=== PATIENT | female | born 1940 | race Two or more races ===

== ENCOUNTER 2023-12-02 12:11 | Inpatient (IN) | payer MEDICARE, OTHER ==
[~2023-12-02] VITALS: Ht 162.6 cm; Wt 54.0 kg
[2023-12-02] VITALS (14 sets, daily range): BP systolic 122–159; BP diastolic 35–107; TEMP 98.8; O2SAT 92–100
[2023-12-02 12:48] LABS: BASOPHILS % (AUTO) 0.8 % (0.0-2.0); EOSINOPHILS # (AUTO) 0.3 K/uL (0.0-0.7); EOSINOPHILS % (AUTO) 5.3 % (0.0-6.0); HEMATOCRIT 41 % (33-45); HEMOGLOBIN 13.3 g/dL (11.5-14.8); LYMPHOCYTES # (AUTO) 2.6 K/uL (0.8-4.8); LYMPHOCYTES % (AUTO) 43.8 % (20.0-44.0); MEAN CORPUSCULAR HEMOGLOBIN 29 PG (26.0-33.0); MEAN CORPUSCULAR HGB CONC 32 g/dl (31.0-36.0); MEAN CORPUSCULAR VOLUME 89 fL (82-100); MONOCYTES # (AUTO) 0.6 K/uL (0.1-1.30); MONOCYTES % (AUTO) 10.7 % (2.0-12.0); NEUTROPHILS # (AUTO) 2.4 K/uL (1.8-8.9); NEUTROPHILS % (AUTO) 39.4 % (43.0-81.0); PLATELET COUNT (AUTO) 198 K/uL (150-450); RED BLOOD CELL COUNT(AUTO) 4.66 MIL/uL (4.0-5.2); RED CELL DISTRIBUTION WIDTH 14.8 % (11.5-15.0)
[2023-12-02 13:03] LABS: CALCIUM, SERUM 9.6 mg/dL (8.5-10.1); CARBON DIOXIDE 27 mmol/L (21-32); CHLORIDE 106 mmol/L (98-107); CREATININE 1.8 mg/dL (0.6-1.3); GLUCOSE 86 mg/dL (74-106); POTASSIUM 5.1 mmol/L (3.5-5.1); SODIUM SERUM 141 mmol/L (136-145); UREA NITROGEN, BLOOD 59 mg/dL (7-18)
[2023-12-02] MEDS ORDERED: MAGN400O6 PO (13:12)
[2023-12-02] MEDS ORDERED: DOCU100T2 PO (13:12)
[2023-12-02] MEDS ORDERED: ACET-868 PO (13:12)
[2023-12-02] MEDS ORDERED: ATOR20TA PO (13:12)
[2023-12-02] MEDS ORDERED: FURO-144 PO (13:12)
[2023-12-02] MEDS ORDERED: WARF-68 PO (13:12)
[2023-12-02] MEDS ORDERED: SACU1TAB7 PO (13:12)
[2023-12-02] MEDS ORDERED: AMLO5TAB4 PO (13:12)
[2023-12-02] MEDS ORDERED: POTA-88 PO (13:12)
[2023-12-02] MEDS ORDERED: LEVE500T20 PO (13:12)
[2023-12-02] MEDS ORDERED: CHOL100062 PO (13:12)
[2023-12-02] MEDS ORDERED: ACET-2030 PO (13:12)
[2023-12-02] MEDS ORDERED: ASPI-1169 PO (13:12)
[2023-12-02] MEDS ORDERED: FAMO-130 PO (13:12)
[2023-12-02] MEDS ORDERED: CARV25TA PO (13:12)
[2023-12-02 13:16] LABS: NT-PRO BNP 2482 pg/mL (0-125)
[2023-12-02 15:09] LABS: INR 2.63 (0.91-1.10); PARTIAL THROMBOPLASTIN TIME 44.3 SEC (24.3-34.3); PROTHROMBIN TIME 26.2 SECS (9.2-11.1)
[2023-12-02] MEDS ORDERED: Z GUARD REMEDY 4 OZ OINT TP PRN (15:30)
[2023-12-02] MEDS ORDERED: PHYTONADIONE 5 MG TABLET PO ONE (15:30)
[2023-12-02] MEDS ORDERED: PHYTONADIONE INJ 5 MG in IV D5W 50 ML SQ ONE (15:30)
[2023-12-02] MEDS ORDERED: ONDANSETRON HCL/PF 4 MG/2 ML VIAL IVP PRN (15:30)
[2023-12-02] MEDS ORDERED: ACETAMINOPHEN 325 MG TABLET PO PRN ×2 (15:30)
[2023-12-02] MEDS: LEVETIRACETAM (250 MG) 250 MG TABLET PO SCH (16:57)
[2023-12-02] MEDS: SACUBITRIL/VALSARTAN 49/51MG TABLET PO SCH (17:00)
[2023-12-02 17:08] LABS: INR 2.72 (0.91-1.10)
[2023-12-02] MEDS: IV NS 0.9% 1,000 ML IV PRN (17:57)
[2023-12-02] MEDS: PHYTONADIONE INJ 5 MG in IV D5W 50 ML SQ ONE (18:04)
[2023-12-02] MEDS: ATORVASTATIN 10 MG TABLET PO SCH (21:43)
[2023-12-03] VITALS (43 sets, daily range): BP systolic 94–159; BP diastolic 32–99; TEMP 96.5–98; O2SAT 92–100
[2023-12-03 04:13] LABS: BASOPHILS # (AUTO) 0.1 K/uL (0.0-0.2); BASOPHILS % (AUTO) 1.1 % (0.0-2.0); EOSINOPHILS # (AUTO) 0.3 K/uL (0.0-0.7); EOSINOPHILS % (AUTO) 6.7 % (0.0-6.0); HEMATOCRIT 41 % (33-45); HEMOGLOBIN 13.4 g/dL (11.5-14.8); LYMPHOCYTES # (AUTO) 1.8 K/uL (0.8-4.8); LYMPHOCYTES % (AUTO) 34.6 % (20.0-44.0); MEAN CORPUSCULAR HEMOGLOBIN 29 PG (26.0-33.0); MEAN CORPUSCULAR HGB CONC 33 g/dl (31.0-36.0); MEAN CORPUSCULAR VOLUME 90 fL (82-100); MONOCYTES # (AUTO) 0.6 K/uL (0.1-1.30); MONOCYTES % (AUTO) 11.2 % (2.0-12.0); NEUTROPHILS # (AUTO) 2.4 K/uL (1.8-8.9); NEUTROPHILS % (AUTO) 46.4 % (43.0-81.0); PLATELET COUNT (AUTO) 177 K/uL (150-450); RED BLOOD CELL COUNT(AUTO) 4.57 MIL/uL (4.0-5.2); RED CELL DISTRIBUTION WIDTH 14.6 % (11.5-15.0); WHITE BLOOD COUNT (AUTO) 5.2 K/uL (4.3-11.0)
[2023-12-03 04:20] LABS: INR 1.51 (0.91-1.10); PROTHROMBIN TIME 15.6 SECS (9.2-11.1)
[2023-12-03 04:27] LABS: CALCIUM, SERUM 8.9 mg/dL (8.5-10.1); CARBON DIOXIDE 24 mmol/L (21-32); CHLORIDE 112 mmol/L (98-107); CREATININE 1.4 mg/dL (0.6-1.3); GLUCOSE 92 mg/dL (74-106); MAGNESIUM 1.9 mg/dL (1.8-2.4); PHOSPHORUS 3.7 mg/dL (2.5-4.9); POTASSIUM 4.4 mmol/L (3.5-5.1); SODIUM SERUM 146 mmol/L (136-145); UREA NITROGEN, BLOOD 42 mg/dL (7-18)
[2023-12-03] MEDS ORDERED: PANTOPRAZOLE 40 MG TABLET.DR PO SCH (07:30)
[2023-12-03] MEDS: AMLODIPINE BESYLATE 5 MG TABLET PO SCH (08:13)
[2023-12-03] MEDS: SACUBITRIL/VALSARTAN 49/51MG TABLET PO SCH (08:13)
[2023-12-03] MEDS: CHOLECALCIFEROL 1,000 UNIT TABLET (VIT D3) PO SCH (08:27)
[2023-12-03] MEDS: DOCUSATE SODIUM 100 MG CAPSULE PO SCH (08:27)
[2023-12-03] MEDS: PANTOPRAZOLE 40 MG VIAL IV SCH (08:40)
[2023-12-03] MEDS ORDERED: FUROSEMIDE 40 MG TABLET PO SCH (09:00)
[2023-12-03] MEDS ORDERED: LIDOCAINE HCL/MPF 1% 30 ML VIAL IJ ONE (09:58)
[2023-12-03] MEDS ORDERED: IOHEXOL 0 ML IV ONE (09:58)
[2023-12-03 10:35] LABS: APPEARANCE,URINE CLEAR (CLEAR); BILIRUBIN,URINE NEGATIVE (NEGATIVE); BLOOD, URINE NEGATIVE Ery/uL (NEGATIVE); COLOR,URINE YELLOW (YELLOW); KETONES,URINE NEGATIVE (NEGATIVE); LEUKOCYTE ESTERASE ,URINE 1+ (NEGATIVE); NITRITE, URINE POSITIVE (NEGATIVE); PROTEIN,URINE NEGATIVE (NEGATIVE); UGLUCOSE NEGATIVE (NEGATIVE); UROBILINOGEN,URINE 0.2 EU/dL (0.2)
[2023-12-03 10:37] LABS: CREATININE, URINE 74.8 MG/DL (30.0-125.0); URINE TOTAL PROTEIN 28.7 mg/dL (0-11.9)
[2023-12-03] MEDS ORDERED: ALBUMIN 5% 500 ML IV ONE (10:55)
[2023-12-03] MEDS ORDERED: MIDAZOLAM HCL 2 MG/2ML VIAL ONE (10:59)
[2023-12-03 11:07] LABS: ADD URINE CULTURE YES; BACTERIA,URINE Many /HPF (None Seen)
[2023-12-03 11:08] LABS: RBC,URINE 0-2 /HPF (0-2); SQUAMOUS EPITHELIAL CELL,UR None Seen /HPF (None Seen)
[2023-12-03 12:19] LABS: EOSINOPHIL,URINE None Seen
[2023-12-03] MEDS ORDERED: NEPRO VAN 237 ML CAN PO PRN (18:30)
[2023-12-04] VITALS (33 sets, daily range): BP systolic 114–192; BP diastolic 47–126; TEMP 98.4–98.8; O2SAT 97–100
[2023-12-04] MEDS: hydrALAZINE HCL IV 20 MG VIAL IV PRN (05:07)
[2023-12-04] MEDS: NITROGLYCERIN 30 GM TUBE TP SCH (09:54)
[2023-12-04] MEDS: hydrALAZINE HCL 50 MG TABLET PO SCH (09:54)
[2023-12-04] MEDS: APIXABAN 5 MG TABLET PO SCH (09:55)
[2023-12-04 10:03] LABS: BASOPHILS # (AUTO) 0.1 K/uL (0.0-0.2); BASOPHILS % (AUTO) 0.8 % (0.0-2.0); EOSINOPHILS # (AUTO) 0.4 K/uL (0.0-0.7); EOSINOPHILS % (AUTO) 4.9 % (0.0-6.0); HEMATOCRIT 43 % (33-45); LYMPHOCYTES # (AUTO) 2.2 K/uL (0.8-4.8); LYMPHOCYTES % (AUTO) 28.6 % (20.0-44.0); MEAN CORPUSCULAR HEMOGLOBIN 29 PG (26.0-33.0); MEAN CORPUSCULAR HGB CONC 33 g/dl (31.0-36.0); MEAN CORPUSCULAR VOLUME 90 fL (82-100); MONOCYTES # (AUTO) 0.8 K/uL (0.1-1.30); MONOCYTES % (AUTO) 10.3 % (2.0-12.0); NEUTROPHILS # (AUTO) 4.3 K/uL (1.8-8.9); NEUTROPHILS % (AUTO) 55.4 % (43.0-81.0); PLATELET COUNT (AUTO) 161 K/uL (150-450); RED BLOOD CELL COUNT(AUTO) 4.77 MIL/uL (4.0-5.2); RED CELL DISTRIBUTION WIDTH 14.8 % (11.5-15.0); WHITE BLOOD COUNT (AUTO) 7.7 K/uL (4.3-11.0)
[2023-12-04 11:33] LABS: CALCIUM, SERUM 9.6 mg/dL (8.5-10.1); CARBON DIOXIDE 14 mmol/L (21-32); CHLORIDE 109 mmol/L (98-107); CREATININE 0.9 mg/dL (0.6-1.3); GLUCOSE 149 mg/dL (74-106); POTASSIUM 4.8 mmol/L (3.5-5.1); SODIUM SERUM 141 mmol/L (136-145); UREA NITROGEN, BLOOD 21 mg/dL (7-18)
[2023-12-04] MEDS: MUPIROCIN OINT 2% 22 GM TUBE NS SCH (21:49)
[2023-12-05] VITALS: BP 147/51; TEMP 98.8; O2SAT 100
[2023-12-05 08:00] VITALS: BP 163/78; TEMP 98.5; O2SAT 100
[2023-12-05 08:12] VITALS: BP 163/78
[2023-12-05] MEDS: PANTOPRAZOLE 40 MG VIAL IV SCH (08:12)
[2023-12-05] MEDS ORDERED: HYDR-4077 PO (08:44)
[2023-12-05] MEDS ORDERED: NITR100C6 PO (08:44)
[2023-12-05] MEDS ORDERED: APIX5TAB PO (08:44)
[2023-12-05] MEDS: NITROFURANTOIN/MONOHYDRATE MACROCRYSTALS 100 MG CAPSULE PO SCH (08:59)
[2023-12-05] MEDS ORDERED: PANTOPRAZOLE 40 MG TABLET.DR PO SCH (09:00)
== END 2023-12-05 11:28 | DRG 258 ==
LOC: ER 12:24 → ICU 15:06 → MEDSG1 12-04 16:28
PROVIDERS: ADMIT Nurse Practitioner Family; ATTEND Nurse Practitioner Family
PROC: 0JPT0PZ Removal of Cardiac Rhythm Related Device from Trunk Subcutaneous Tissue and Fascia, Open Approach (ICD-10-PCS; principal; 2023-12-03)
PROC: 0JH606Z Insertion of Pacemaker, Dual Chamber into Chest Subcutaneous Tissue and Fascia, Open Approach (ICD-10-PCS; 2023-12-03)
DX: T82.111A Breakdown (mechanical) of cardiac pulse generator (battery), initial encounter (principal); G93.41 Metabolic encephalopathy; I13.0 Hypertensive heart and chronic kidney disease with heart failure and stage 1 through stage 4 chronic kidney disease, or unspecified chronic kidney disease; I44.2 Atrioventricular block, complete; I50.22 Chronic systolic (congestive) heart failure; E87.0 Hyperosmolality and hypernatremia; N39.0 Urinary tract infection, site not specified; I48.92 Unspecified atrial flutter; N17.9 Acute kidney failure, unspecified; Y71.2 Prosthetic and other implants, materials and accessory cardiovascular devices associated with adverse incidents; D63.1 Anemia in chronic kidney disease; E78.5 Hyperlipidemia, unspecified; G89.4 Chronic pain syndrome; I25.10 Atherosclerotic heart disease of native coronary artery without angina pectoris; I25.2 Old myocardial infarction; Z79.82 Long term (current) use of aspirin; Z86.73 Personal history of transient ischemic attack (TIA), and cerebral infarction without residual deficits; Z95.1 Presence of aortocoronary bypass graft; N18.9 Chronic kidney disease, unspecified; I48.91 Unspecified atrial fibrillation; G40.909 Epilepsy, unspecified, not intractable, without status epilepticus; Y84.8 Other medical procedures as the cause of abnormal reaction of the patient, or of later complication, without mention of misadventure at the time of the procedure; Y92.129 Unspecified place in nursing home as the place of occurrence of the external cause; Z79.899 Other long term (current) drug therapy
CPT/HCPCS: 36415; 71045-TC; 80048-TC; 81001; 82570-TC; 82962-TC; 83735-TC; 83880; 84100-TC; 84300-TC; 84484-TC; 85025-TC; 85610-TC; 85730-TC; 87081-TC; 87086-TC; 93307-TC; 94799-TC; A4223; A6403; C1785; G0378; J0360; J0690; J1644; J2250; J2470; J3430; J3490; J7030; J7060; P9045; Q9967

== ENCOUNTER 2024-03-16 13:42 | Inpatient (IN) | payer MEDICARE, OTHER ==
[~2024-03-16] VITALS: Ht 162.6 cm; Wt 55.3 kg
[~2024-03-16 13:42] MED LIST: ACET-868 PO; AMLO5TAB4 PO; APIX5TAB PO; ASPI-1169 PO; ATOR20TA PO; CARV25TA PO; CHOL100062 PO; DOCU100T2 PO; FAMO-130 PO; FURO-144 PO; HYDR-4077 PO; IVER3TAB2 PO; LEVE500T20 PO; MAGN400O6 PO; MULT-213 PO; NITR100C6 PO; POTA-88 PO; SACU1TAB7 PO
[2024-03-16] MEDS ORDERED: NALOXONE PREFILLED SYRINGE 2 MG/2 ML SYRINGE ONE (13:46)
[2024-03-16] MEDS: NALOXONE HCL 0.4 MG/ML AMPUL IV ONE (13:48)
[2024-03-16 14:17] LABS: BASOPHILS # (AUTO) 0.1 K/uL (0.0-0.2); BASOPHILS % (AUTO) 1.5 % (0.0-2.0); EOSINOPHILS # (AUTO) 0.3 K/uL (0.0-0.7); EOSINOPHILS % (AUTO) 5.7 % (0.0-6.0); HEMATOCRIT 35 % (33-45); HEMOGLOBIN 11.7 g/dL (11.5-14.8); LYMPHOCYTES # (AUTO) 2.3 K/uL (0.8-4.8); LYMPHOCYTES % (AUTO) 43.6 % (20.0-44.0); MEAN CORPUSCULAR HEMOGLOBIN 30 PG (26.0-33.0); MEAN CORPUSCULAR HGB CONC 33 g/dl (31.0-36.0); MEAN CORPUSCULAR VOLUME 90 fL (82-100); MONOCYTES # (AUTO) 0.8 K/uL (0.1-1.30); MONOCYTES % (AUTO) 14.1 % (2.0-12.0); NEUTROPHILS # (AUTO) 1.9 K/uL (1.8-8.9); NEUTROPHILS % (AUTO) 35.1 % (43.0-81.0); PLATELET COUNT (AUTO) 178 K/uL (150-450); RED BLOOD CELL COUNT(AUTO) 3.88 MIL/uL (4.0-5.2); RED CELL DISTRIBUTION WIDTH 14.6 % (11.5-15.0); WHITE BLOOD COUNT (AUTO) 5.4 K/uL (4.3-11.0)
[2024-03-16 14:35] LABS: INR 1.03 (0.91-1.10); PARTIAL THROMBOPLASTIN TIME 27.6 SEC (24.3-34.3); PROTHROMBIN TIME 10.9 SECS (9.2-11.1)
[2024-03-16 14:36] LABS: CALCIUM, SERUM 9.8 mg/dL (8.5-10.1); CARBON DIOXIDE 26 mmol/L (21-32); CHLORIDE 110 mmol/L (98-107); CREATININE 1.3 mg/dL (0.6-1.3); GLUCOSE 95 mg/dL (74-106); POTASSIUM 4.7 mmol/L (3.5-5.1); SODIUM SERUM 142 mmol/L (136-145); UREA NITROGEN, BLOOD 36 mg/dL (7-18)
[2024-03-16 14:37] LABS: SERUM AMMONIA 5 umol/L (11-32)
[2024-03-16] MEDS ORDERED: ACET-73 PO (14:39)
[2024-03-16 14:47] LABS: ABG BASE EXCESS -1.7 mmol/L (-2.0-3.0); ABG OXYGEN SATURATION 96.2 % (94.0-98.0); ABG PCO2 40.3 mmHg (32.0-45.0); ABG PO2 89.1 mmHg (83.0-108.0); ABG TOTAL HEMOGLOBIN 12.9 G/dL (12.0-16.0); COHb 0.3 % (0.5-1.5); MetHb 0.3 % (0.0-1.5); O2Hb 95.6 % (94.0-97.0); SITE, ABG RIGHT BRACHIAL
[2024-03-16 14:51] LABS: ALANINE AMINOTRANSFERASE 24 U/L (12-78); ALBUMIN 3.6 g/dL (3.4-5.0); ALCOHOL, BLOOD < 3 mg/dL (0-10); ALKALINE PHOSPHATASE 55 U/L (46-116); ASPARTATE AMINOTRANSFERASE 17 U/L (15-37); BILIRUBIN,DIRECT 0.2 mg/dL (0.0-0.2); BILIRUBIN,TOTAL 0.8 mg/dL (0.2-1.0); TOTAL PROTEIN, SERUM 6.8 g/dL (6.4-8.2)
[2024-03-16 14:52] LABS: ACETAMINOPHEN <10 ug/ml (10-30); SALICYLATE < 0.2 mg/dL (2.8-20.0)
[2024-03-16 15:20] LABS: APPEARANCE,URINE CLEAR (CLEAR); BILIRUBIN,URINE NEGATIVE (NEGATIVE); BLOOD, URINE NEGATIVE Ery/uL (NEGATIVE); COLOR,URINE YELLOW (YELLOW); KETONES,URINE NEGATIVE (NEGATIVE); LEUKOCYTE ESTERASE ,URINE 2+ (NEGATIVE); NITRITE, URINE POSITIVE (NEGATIVE); PROTEIN,URINE NEGATIVE (NEGATIVE); UGLUCOSE NEGATIVE (NEGATIVE); UROBILINOGEN,URINE 0.2 EU/dL (0.2)
[2024-03-16 15:28] LABS: PREGNANCY TEST URINE QUAL NEGATIVE (NEGATIVE)
[2024-03-16 15:30] LABS: RBC,URINE 0-2 /HPF (0-2)
[2024-03-16 15:31] LABS: ADD URINE CULTURE YES; BACTERIA,URINE Many /HPF (None Seen); SQUAMOUS EPITHELIAL CELL,UR Rare /HPF (None Seen); WBC,URINE 81-100 /HPF (0-3)
[2024-03-16 15:38] LABS: AMPHETAMINE, URINE NEGATIVE (NEGATIVE); BARBITURATE, URINE NEGATIVE (NEGATIVE); BENZODIAZEPINE, URINE NEGATIVE (NEGATIVE); CANNABINOID, URINE NEGATIVE (NEGATIVE); COCCAINE, URINE NEGATIVE (NEGATIVE); OPIATE, URINE NEGATIVE (NEGATIVE); PHENCYCLIDINE SCREEN,URINE NEGATIVE (NEGATIVE)
[2024-03-16] MEDS: CEFTRIAXONE 1GM BAG (ER ONLY) 1 GM/50 ML PIGGYBACK IV ONE (16:10)
[2024-03-16] MEDS ORDERED: MAGNESIUM HYDROXIDE 30 ML UDC PO PRN (18:00)
[2024-03-16] MEDS ORDERED: Z GUARD REMEDY 4 OZ OINT TP PRN (18:00)
[2024-03-16] MEDS ORDERED: MAG HYDROX/AL HYDROX/SIMETH 30 ML UDC PO PRN (18:00)
[2024-03-16] MEDS ORDERED: HYDROCODONE/APAP 5/325MG TABLET PO PRN (18:00)
[2024-03-16] MEDS ORDERED: ONDANSETRON HCL/PF 4 MG/2 ML VIAL IVP PRN (18:00)
[2024-03-16] MEDS ORDERED: ZOLPIDEM TARTRATE 5 MG TABLET PO PRN (18:00)
[2024-03-16] MEDS ORDERED: ACETAMINOPHEN 325 MG TABLET PO PRN (18:00)
[2024-03-16 20:00] VITALS: BP 105/60; TEMP 97.1; O2SAT 99
[2024-03-16] MEDS: ENOXAPARIN SODIUM 30 MG/0.3 ML DISP.SYRIN SQ SCH (21:23)
[2024-03-16] MEDS: IV 1/2NS 1000 ML 1,000 ML IV PRN (21:43)
[2024-03-17] VITALS: BP 144/74; TEMP 96.5; O2SAT 99
[2024-03-17 04:00] VITALS: BP 141/75; TEMP 97.3; O2SAT 99
[2024-03-17 07:29] LABS: BASOPHILS # (AUTO) 0.1 K/uL (0.0-0.2); EOSINOPHILS # (AUTO) 0.3 K/uL (0.0-0.7); HEMATOCRIT 39 % (33-45); HEMOGLOBIN 12.4 g/dL (11.5-14.8); LYMPHOCYTES # (AUTO) 1.6 K/uL (0.8-4.8); LYMPHOCYTES % (AUTO) 32.8 % (20.0-44.0); MEAN CORPUSCULAR HEMOGLOBIN 29 PG (26.0-33.0); MEAN CORPUSCULAR HGB CONC 32 g/dl (31.0-36.0); MEAN CORPUSCULAR VOLUME 92 fL (82-100); MONOCYTES # (AUTO) 0.6 K/uL (0.1-1.30); MONOCYTES % (AUTO) 12.5 % (2.0-12.0); NEUTROPHILS # (AUTO) 2.3 K/uL (1.8-8.9); NEUTROPHILS % (AUTO) 47.7 % (43.0-81.0); PLATELET COUNT (AUTO) 181 K/uL (150-450); RED BLOOD CELL COUNT(AUTO) 4.21 MIL/uL (4.0-5.2); RED CELL DISTRIBUTION WIDTH 14.6 % (11.5-15.0); WHITE BLOOD COUNT (AUTO) 4.9 K/uL (4.3-11.0)
[2024-03-17 07:40] LABS: CALCIUM, SERUM 9.5 mg/dL (8.5-10.1); CARBON DIOXIDE 29 mmol/L (21-32); CHLORIDE 111 mmol/L (98-107); CREATININE 1.1 mg/dL (0.6-1.3); GLUCOSE 81 mg/dL (74-106); MAGNESIUM 2.3 mg/dL (1.8-2.4); POTASSIUM 4.5 mmol/L (3.5-5.1); SODIUM SERUM 145 mmol/L (136-145); UREA NITROGEN, BLOOD 33 mg/dL (7-18)
[2024-03-17] MEDS: PANTOPRAZOLE 40 MG TABLET.DR PO SCH (07:46)
[2024-03-17 08:00] VITALS: BP 155/83; TEMP 97.7; O2SAT 99
[2024-03-17 12:00] VITALS: BP 124/57; TEMP 98.1; O2SAT 100
[2024-03-17] MEDS: CEFTRIAXONE 1 G in IV D5W 50 ML IV SCH (15:08)
[2024-03-17 16:00] VITALS: BP 156/92; TEMP 98.6; O2SAT 100
[2024-03-17 20:00] VITALS: BP 175/95; TEMP 98.6; O2SAT 100
[2024-03-17] MEDS: hydrALAZINE HCL IV 20 MG VIAL IV PRN (21:01)
[2024-03-18] VITALS: BP 145/84; TEMP 98; O2SAT 98
[2024-03-18 04:00] VITALS: BP 173/81; TEMP 98.3; O2SAT 98
[2024-03-18 08:50] VITALS: BP 168/65; TEMP 98.6; O2SAT 99
[2024-03-18 12:10] VITALS: BP 150/52
[2024-03-18 16:00] VITALS: BP 153/81; TEMP 98.8; O2SAT 98
[2024-03-18 20:00] VITALS: BP 135/59; TEMP 98.3; O2SAT 100
[2024-03-19 04:00] VITALS: BP 164/55; TEMP 97.9; O2SAT 99
[2024-03-19 08:00] VITALS: BP 183/75; TEMP 97.7; O2SAT 98
[2024-03-19] MEDS: AMLODIPINE BESYLATE 5 MG TABLET PO SCH (09:19)
[2024-03-19 16:00] VITALS: BP 180/70; TEMP 98; O2SAT 98
[2024-03-19 16:55] VITALS: BP 194/66
[2024-03-19] MEDS: CLONIDINE HCL 0.1 MG TABLET PO ONE (16:55)
== END 2024-03-19 20:25 | DRG 689 ==
LOC: ER 13:57 → TELE1 17:12 → MEDSG1 03-18 09:46
DX: N39.0 Urinary tract infection, site not specified (principal); G93.41 Metabolic encephalopathy; I50.32 Chronic diastolic (congestive) heart failure; I13.0 Hypertensive heart and chronic kidney disease with heart failure and stage 1 through stage 4 chronic kidney disease, or unspecified chronic kidney disease; N17.9 Acute kidney failure, unspecified; N18.9 Chronic kidney disease, unspecified; I25.10 Atherosclerotic heart disease of native coronary artery without angina pectoris; E78.5 Hyperlipidemia, unspecified; G40.909 Epilepsy, unspecified, not intractable, without status epilepticus; G89.4 Chronic pain syndrome; G93.89 Other specified disorders of brain; I25.2 Old myocardial infarction; M89.8X9 Other specified disorders of bone, unspecified site; Z95.0 Presence of cardiac pacemaker; Z95.1 Presence of aortocoronary bypass graft; Z79.01 Long term (current) use of anticoagulants; I70.0 Atherosclerosis of aorta; B96.1 Klebsiella pneumoniae [K. pneumoniae] as the cause of diseases classified elsewhere; Z79.82 Long term (current) use of aspirin; I69.320 Aphasia following cerebral infarction; E86.9 Volume depletion, unspecified; Z20.822 Contact with and (suspected) exposure to COVID-19
CPT/HCPCS: 36415; 70450-TC; 71045-TC; 80048-TC; 80076-TC; 81001; 82140-TC; 82962-TC; 83605-TC; 83735-TC; 84100-TC; 84443-TC; 84484-TC; 84703-TC; 85025-TC; 85730-TC; 87040-TC; 87086-TC; 97110-TC; 97116-TC; 97530-TC; A4223; G0378; G0480; J0360; J0696; J1650; J2310; J3490; J7060

== ENCOUNTER 2024-12-28 00:09 | Inpatient (IN) | payer MEDICARE, OTHER ==
[~2024-12-28] VITALS: Ht 162.6 cm; Wt 60.3 kg
[~2024-12-28 00:09] MED LIST changes: +ACET-73 PO; -NITR100C6 PO
[2024-12-28 00:45] LABS: PLATELET COUNT (AUTO) 312 K/uL (150-450); RED BLOOD CELL COUNT(AUTO) 3.36 MIL/uL (4.0-5.2); RED CELL DISTRIBUTION WIDTH 14.2 % (11.5-15.0); WHITE BLOOD COUNT (AUTO) 8.3 K/uL (4.3-11.0)
[2024-12-28 00:57] LABS: INR 1.03 (0.91-1.10)
[2024-12-28 00:59] LABS: CALCIUM, SERUM 9.3 mg/dL (8.5-10.1); CREATININE 1.5 mg/dL (0.6-1.3); SODIUM SERUM 141 mmol/L (136-145); UREA NITROGEN, BLOOD 26 mg/dL (7-18)
[2024-12-28 01:14] LABS: ASPARTATE AMINOTRANSFERASE 12 U/L (15-37); NT-PRO BNP 4114 pg/mL (0-125); TOTAL PROTEIN, SERUM 6.8 g/dL (6.4-8.2)
[2024-12-28] MEDS ORDERED: ACETAMINOPHEN 650 MG/SUPP.RECT RC PRN (02:00)
[2024-12-28] MEDS ORDERED: ONDANSETRON HCL/PF 4 MG/2 ML VIAL IVP PRN (02:00)
[2024-12-28] MEDS: FUROSEMIDE 40 MG/4 ML VIAL IV ONE (02:00)
[2024-12-28] MEDS: HEPARIN SODIUM, PORCINE 5000 UNITS/1 ML VIAL SQ SCH (02:00)
[2024-12-28] MEDS ORDERED: HEPARIN SODIUM, PORCINE 5000 UNITS/1 ML VIAL ONE (03:31)
[2024-12-28] MEDS ORDERED: FUROSEMIDE 40 MG/4 ML VIAL ONE (03:31)
[2024-12-28] MEDS ORDERED: ENOXAPARIN SODIUM 60 MG/0.6 ML DISP.SYRIN SQ SCH ×2 (05:00→06:43)
[2024-12-28 05:30] LABS: PHOSPHORUS 3.5 mg/dL (2.5-4.9)
[2024-12-28] MEDS ORDERED: ENOXAPARIN SODIUM 60 MG/0.6 ML DISP.SYRIN SQ ONE (05:52)
[2024-12-28] MEDS ORDERED: CRAN425C6 PO (07:39)
[2024-12-28] MEDS ORDERED: HYDR-3972 PO (07:39)
[2024-12-28] MEDS ORDERED: PANT40TA49 PO (07:39)
[2024-12-28] MEDS ORDERED: APIX5TAB PO (07:39)
[2024-12-28 08:00] VITALS: BP 163/49; TEMP 98.2; O2SAT 97
[2024-12-28] MEDS: APIXABAN 5 MG TABLET PO SCH (09:00)
[2024-12-28] MEDS: PANTOPRAZOLE 40 MG TABLET.DR PO SCH (09:00)
[2024-12-28] MEDS ORDERED: PANTOPRAZOLE 40 MG VIAL IV SCH (09:00)
[2024-12-28] MEDS: ENOXAPARIN SODIUM 60 MG/0.6 ML DISP.SYRIN SQ SCH (09:00)
[2024-12-28] MEDS: AMLODIPINE BESYLATE 5 MG TABLET PO SCH (09:00)
[2024-12-28] MEDS: LEVETIRACETAM (500MG) 500 MG in IV NS 0.9% 100 ML IV SCH (09:18)
[2024-12-28 11:46] LABS: IRON, SERUM 24.0 ug/dl (50-175)
[2024-12-28 11:59] LABS: LDL 68.0 mg/dL (0-99)
[2024-12-28 12:00] VITALS: BP 149/54; TEMP 98; O2SAT 98
[2024-12-28 14:47] LABS: CREATININE, URINE 96.1 MG/DL (30.0-125.0); URINE SODIUM, RANDOM 67.0 mmol/l (40-220); URINE TOTAL PROTEIN 39.8 mg/dL (0-11.9)
[2024-12-28 15:14] LABS: APPEARANCE,URINE SLIGHTLY CLOUDY (CLEAR); BLOOD, URINE NEGATIVE Ery/uL (NEGATIVE); LEUKOCYTE ESTERASE ,URINE 1+ (NEGATIVE); NITRITE, URINE POSITIVE (NEGATIVE); UGLUCOSE NEGATIVE (NEGATIVE)
[2024-12-28 15:43] LABS: ADD URINE CULTURE YES; SQUAMOUS EPITHELIAL CELL,UR 0-2 /HPF (None Seen)
[2024-12-28 15:47] VITALS: BP 141/98; TEMP 98.2; O2SAT 99
[2024-12-28] MEDS: CARVEDILOL 12.5 MG TABLET PO SCH (16:21)
[2024-12-28 17:22] LABS: EOSINOPHIL,URINE None Seen
[2024-12-28 20:00] VITALS: BP 146/80; TEMP 98.6; O2SAT 95
[2024-12-28] MEDS: ATORVASTATIN 40 MG TABLET PO SCH (21:22)
[2024-12-29] VITALS: BP_SYST 116; BP_SYST 151; BP_DIAS 64; BP_DIAS 67; TEMP 98.1; TEMP 98.8; O2SAT 100; O2SAT 95
[2024-12-29 04:00] VITALS: BP 148/70; TEMP 98.8; O2SAT 99
[2024-12-29 06:24] LABS: PLATELET COUNT (AUTO) 307 K/uL (150-450); RED BLOOD CELL COUNT(AUTO) 3.23 MIL/uL (4.0-5.2); RED CELL DISTRIBUTION WIDTH 13.6 % (11.5-15.0); WHITE BLOOD COUNT (AUTO) 6.0 K/uL (4.3-11.0)
[2024-12-29 06:31] LABS: CALCIUM, SERUM 9.4 mg/dL (8.5-10.1); CREATININE 1.3 mg/dL (0.6-1.3); SODIUM SERUM 139.0 mmol/L (136-145); UREA NITROGEN, BLOOD 24.0 mg/dL (7-18)
[2024-12-29 08:00] VITALS: BP 154/57; TEMP 98.5; O2SAT 99
[2024-12-29] MEDS: FUROSEMIDE 40 MG/4 ML VIAL IV SCH (08:22)
[2024-12-29] MEDS: PANTOPRAZOLE 40 MG VIAL IV SCH (08:22)
[2024-12-29] MEDS: CEFTRIAXONE 1 G in IV D5W 50 ML IV SCH (09:52)
[2024-12-29 11:26] VITALS: BP 122/46; TEMP 98.2; O2SAT 98
[2024-12-29 16:00] VITALS: BP 151/68; TEMP 98.6; O2SAT 100
[2024-12-29 20:00] VITALS: BP 109/58; TEMP 97.9; O2SAT 100
[2024-12-30] VITALS (7 sets, daily range): BP systolic 113–167; BP diastolic 43–70; TEMP 96.9–98.8; O2SAT 97–100
[2024-12-30 06:53] LABS: PLATELET COUNT (AUTO) 270 K/uL (150-450); RED BLOOD CELL COUNT(AUTO) 3.32 MIL/uL (4.0-5.2); RED CELL DISTRIBUTION WIDTH 15.2 % (11.5-15.0); WHITE BLOOD COUNT (AUTO) 5.1 K/uL (4.3-11.0)
[2024-12-30 07:01] LABS: CALCIUM, SERUM 9.4 mg/dL (8.5-10.1); CREATININE 1.4 mg/dL (0.6-1.3); PHOSPHORUS 3.5 mg/dL (2.5-4.9); SODIUM SERUM 141.0 mmol/L (136-145); UREA NITROGEN, BLOOD 25.0 mg/dL (7-18)
[2024-12-30] MEDS: PANTOPRAZOLE 40 MG TABLET.DR PO SCH (11:11)
[2024-12-30] MEDS: Z GUARD REMEDY 4 OZ OINT TP PRN (11:16)
[2024-12-30] MEDS: LEVETIRACETAM (250 MG) 250 MG TABLET PO SCH (20:50)
[2024-12-31] VITALS: BP 129/52; TEMP 98.2; O2SAT 100; O2SAT 96
[2024-12-31 04:00] VITALS: BP_SYST 107; BP_SYST 114; BP_DIAS 67; BP_DIAS 68; TEMP 98.2; TEMP 98.4; O2SAT 100
[2024-12-31 06:31] LABS: PLATELET COUNT (AUTO) 312 K/uL (150-450); RED BLOOD CELL COUNT(AUTO) 3.45 MIL/uL (4.0-5.2); RED CELL DISTRIBUTION WIDTH 13.8 % (11.5-15.0); WHITE BLOOD COUNT (AUTO) 6.0 K/uL (4.3-11.0)
[2024-12-31 07:00] LABS: CALCIUM, SERUM 8.7 mg/dL (8.5-10.1); CREATININE 1.4 mg/dL (0.6-1.3); PHOSPHORUS 3.8 mg/dL (2.5-4.9); SODIUM SERUM 139.0 mmol/L (136-145); UREA NITROGEN, BLOOD 28.0 mg/dL (7-18)
[2024-12-31 07:55] VITALS: BP 141/90; TEMP 99; O2SAT 98
[2024-12-31 08:00] VITALS: BP 140/40; TEMP 99; O2SAT 98
[2024-12-31 10:07] LABS: EOSINOPHILS % (MANUAL) 5 % (0-4); LYMPHOCYTES % (MANUAL) 32 % (16-48); MONOCYTES % (MANUAL) 15 % (0-11.0); NEUTROPHILS % (MANUAL) 48 (42-76); PLATELET ESTIMATE ADEQUATE
[2024-12-31] MEDS ORDERED: LEVO250T59 PO (10:44)
[2024-12-31 12:00] VITALS: BP 122/33; TEMP 97.3; O2SAT 99
== END 2024-12-31 14:22 | DRG 291 ==
LOC: ER 00:16 → TELE 06:03
PROVIDERS: ADMIT Nurse Practitioner Family; ATTEND Nurse Practitioner Family
DX: I13.0 Hypertensive heart and chronic kidney disease with heart failure and stage 1 through stage 4 chronic kidney disease, or unspecified chronic kidney disease (principal); I50.33 Acute on chronic diastolic (congestive) heart failure; E44.0 Moderate protein-calorie malnutrition; N39.0 Urinary tract infection, site not specified; N17.9 Acute kidney failure, unspecified; I48.92 Unspecified atrial flutter; I48.91 Unspecified atrial fibrillation; E78.5 Hyperlipidemia, unspecified; D63.8 Anemia in other chronic diseases classified elsewhere; G89.4 Chronic pain syndrome; E88.09 Other disorders of plasma-protein metabolism, not elsewhere classified; H26.9 Unspecified cataract; I25.10 Atherosclerotic heart disease of native coronary artery without angina pectoris; N18.30 Chronic kidney disease, stage 3 unspecified; Z79.82 Long term (current) use of aspirin; Z79.01 Long term (current) use of anticoagulants; Z95.0 Presence of cardiac pacemaker; Z95.1 Presence of aortocoronary bypass graft; B96.20 Unspecified Escherichia coli [E. coli] as the cause of diseases classified elsewhere; I69.320 Aphasia following cerebral infarction; G40.909 Epilepsy, unspecified, not intractable, without status epilepticus; G93.89 Other specified disorders of brain; I35.0 Nonrheumatic aortic (valve) stenosis; F03.90 Unspecified dementia, unspecified severity, without behavioral disturbance, psychotic disturbance, mood disturbance, and anxiety; E83.9 Disorder of mineral metabolism, unspecified; Z68.22 Body mass index [BMI] 22.0-22.9, adult
CPT/HCPCS: 36415; 71045-TC; 80048-TC; 80061-TC; 80076-TC; 81001; 82570-TC; 82728-TC; 83540-TC; 83735-TC; 83880; 84100-TC; 84300-TC; 84439-TC; 84443-TC; 84484-TC; 85025-TC; 85027-TC; 85730-TC; 87081-TC; 87086-TC; 87186-TC; 92526; 92611; 93307-TC; A4223; G0378; J0696; J1644; J1650; J1938; J1953; J2470; J3490; J7030; J7050; J7060